=== PATIENT | male | born 1935 | race Caucasian/White ===

== ENCOUNTER 2023-02-24 10:18 | Day surgery (SDC) | payer MEDICARE, BC ==
[~2023-02-24] VITALS: Ht 182.9 cm; Wt 71.9 kg
[2023-02-24] VITALS (11 sets, daily range): BP systolic 132–172; BP diastolic 58–77; PULSE 50–62; TEMP 97.5
[~2023-02-24 10:18] MED LIST: LR 1,000 ML IV SCH
[2023-02-24] MEDS ORDERED: Ondansetron 4 MG/2 ML VIAL ONE (10:49)
[2023-02-24] MEDS ORDERED: NS 10 ML IV ONE (10:49)
[2023-02-24] MEDS ORDERED: dexAMETHasone 10 MG/ML VIAL ONE (10:49)
[2023-02-24] MEDS ORDERED: PRILOSEC 20MG20 MG PO (12:06)
[2023-02-24] MEDS ORDERED: PROSCAR 5MG5 MG PO (12:07)
[2023-02-24] MEDS ORDERED: CRESTOR5 MG PO (12:07)
[2023-02-24] MEDS ORDERED: LASIX 20MG TABL20 MG PO (12:08)
[2023-02-24] MEDS ORDERED: NORVASC 5MG5 MG/TAB PO (12:08)
[2023-02-24] MEDS ORDERED: COREG 3.123.125 MG/T PO (12:08)
[2023-02-24] MEDS ORDERED: FLOMAX 0.40.4 MG/CAP PO (12:09)
[2023-02-24] MEDS ORDERED: SYNTHROID0.075 MG/T PO (12:09)
[2023-02-24] MEDS ORDERED: fentaNYL 50 MCG/ML 2 ML VIAL ONE (13:50)
[2023-02-24] MEDS ORDERED: Tranexamic Acid 1,000 MG/10 ML VIAL ONE (13:58)
[2023-02-24] MEDS ORDERED: Lidocaine 2% (20 MG/ML) 20 ML UROJET UR ONE (14:12)
[2023-02-24] MEDS ORDERED: Ondansetron 4 MG/2 ML VIAL IV PRN ×2 (14:15→15:30)
[2023-02-24] MEDS ORDERED: hydrALAZINE 20 MG/ML 1 ML VIAL IV PRN (14:15)
[2023-02-24] MEDS ORDERED: HYDROmorphone 2 MG/1 ML VIAL IV PRN (14:15)
[2023-02-24] MEDS ORDERED: droPERidol 2.5 MG/ML 2 ML VIAL IV PRN (14:15)
[2023-02-24] MEDS ORDERED: fentaNYL 50 MCG/ML 2 ML VIAL IV PRN ×2 (14:15)
[2023-02-24] MEDS ORDERED: Acetaminophen 325 MG TAB PO PRN (15:30)
[2023-02-24] MEDS ORDERED: Magnes Hydrox (MOM) 80 MG/ML 30 ML CUP PO PRN (15:30)
[2023-02-24] MEDS ORDERED: NS Irrig Soln 3000 ML SOLN IR PRN (15:30)
[2023-02-24] MEDS ORDERED: Hyoscyamine 0.125 MG Sublingual TAB SL PRN (15:30)
[2023-02-24] MEDS ORDERED: 1/2 NS & 20 mEq KCl 1,000 ML IV SCH (15:30)
[2023-02-24] MEDS ORDERED: Morphine 4 MG/ML VIAL IV PRN (15:30)
[2023-02-24] MEDS ORDERED: Ondansetron 4 MG/2 ML VIAL IV ONE (15:45)
[2023-02-24] MEDS ORDERED: Carvedilol 3.125 MG TAB PO SCH (17:00)
--- NOTE | 2023-02-24 17:09 | NUR ---
PATIENT BROUGHT TO FLOOR AT APPROXIMATELY 1600. CBI RUNNING SLOW, URINE LIGHT YELLOW AND CLEAR. POST OP FLUIDS INFUSING INTO LEFT FA IV. POST OP VITALS RUNNING. CALL LIGHT IN REACH.
--- NOTE | 2023-02-24 17:58 | NUR ---
PATIENT ALERT AND ORIENTED. MORE ALERT AND EATING DINNER. PATIENT DENIES PAIN, REPORTS FEELING OF NEED TO HAVE A BM. SL LEVSIN ADMINISTERED. CARMONA WITH PEACH COLORED OUTPUT. CBI RUNNING SLOW. IV FLUIDS INFUSING INTO LEFT FA AT 75ML/HOUR. NO FURTHER NEEDS. CALL LIGHT IN REACH.
--- NOTE | 2023-02-24 19:17 | NUR ---
report received from sherri patel. pt assisted back to bed from commode by previous shift. pt remains of post op checks. pt denies pain. bed alarm on. call light in reach. all needs met at this time.
[2023-02-24] MEDS ORDERED: Nystatin 100,000 Units/GM Ointment 15 GM TUBE TP SCH (21:00)
[2023-02-24] MEDS ORDERED: Melatonin 3 MG TAB PO PRN (21:00)
[2023-02-24] MEDS ORDERED: Atorvastatin 10 MG TAB PO SCH (21:00)
[2023-02-24] MEDS ORDERED: Rosuvastatin 5 MG **** subs to Atorvastatin 10 MG PO SCH (21:00)
--- NOTE | 2023-02-24 21:54 | NUR ---
shift assessment complete, see documentation. pt had medium bowel movement and states he no longer has abd pain. cbi running slow with light pink urine. bed alarm on. call light in reach. all needs met at this time.
[2023-02-25] VITALS (8 sets, daily range): BP systolic 135–163; BP diastolic 70–75; PULSE 56–61; TEMP 97.7–98.1
--- NOTE | 2023-02-25 01:11 | NUR ---
pt reports the need to have bowel movement and requests prn. sl levsin administered per orders. call light in reach. all needs met at this time.
--- NOTE | 2023-02-25 06:07 | NUR ---
cbi continues running slow with light pink urine. pt denies pain. pt now resting. call light in reach. all needs met at this time.
[2023-02-25] MEDS ORDERED: Omeprazole 20 MG **** subs to Pantoprazole 40 MG PO SCH (07:00)
--- NOTE | 2023-02-25 08:30 | NUR ---
IV INT TO LEFT FA.
[2023-02-25] MEDS ORDERED: Furosemide 20 MG TAB PO SCH (09:00)
[2023-02-25] MEDS ORDERED: amLODIPine 5 MG TAB PO SCH (09:00)
[2023-02-25] MEDS ORDERED: Finasteride 5 MG TAB PO SCH (09:00)
--- NOTE | 2023-02-25 10:23 | NUR ---
Initial visit; Patient thanked [employer] Outside [employer] for looking in on him and offering God's blessings and thanking him for his 'smile' that will surely help him get well. Ban smiled at [employer] when she offered God's blessings and prayer.
--- NOTE | 2023-02-25 10:25 | NUR ---
PATIENT PRIMED AND PULLED. TOLERATED WELL. STARTED 6 CUP REGIMEN. PATIENT ON CUP 2.
--- NOTE | 2023-02-25 11:01 | NUR ---
PATIENT ALERT AND ORIENTED X4. VSS. PATIENT HERE FOR TURP. CBI RUNNING SLOW. IV TO LEFT FA WITH 1/2NS 20MEQ AT 75ML/HOUR. PATIENT DENIES ANY PAIN. ASSESSMENT PERFORMED. AM MEDS ADMINISTERED. CALL LIGHT IN REACH. BED ALARM ON.
--- NOTE | 2023-02-25 14:17 | NUR ---
PATIENT FINISHED 6 CUP REGIMEN. HUGO ZAMBRANO, NOTIFIED. DISCHARGE ORDERS WERE GIVEN.
--- NOTE | 2023-02-25 14:18 | NUR ---
DISCHARGE INSTRUCTIONS PROVIDED. PATIENT EDUCATION GIVEN. IC DC'D. FOLLOW UP APPOINTMENT DISCUSSED. MEDICATIONS REVIEWED. PATIENT AND DAUGHTER DENY ANY QUESTIONS OR CONCERNS.
--- NOTE | 2023-02-25 15:15 | NUR ---
PATIENT ESCORTED OUT VIA WHEELCHAIR
== END 2023-02-25 15:15 | disposition home or self-care (01) ==
LOC: SDCO 10:18 → SURG 16:00 → SDCO 02-25 15:15
DX: N40.1 Benign prostatic hyperplasia with lower urinary tract symptoms (principal); R39.14 Feeling of incomplete bladder emptying; R39.12 Poor urinary stream; R35.1 Nocturia; I10 Essential (primary) hypertension; K21.9 Gastro-esophageal reflux disease without esophagitis
CPT/HCPCS: OP; J0665; J0690; J1100; J2405; J2704; J3010; J3480; J7120